=== PATIENT | male | born 2000 | race Hispanic/Latino ===

== ENCOUNTER 2023-11-18 18:34 | Emergency (ER) | payer BC ==
[~2023-11-18] VITALS: Ht 170.2 cm; Wt 59.9 kg
[2023-11-18 19:29] LABS: BASOPHILS # (AUTO) 0.02 K/uL (0.00-0.20); BASOPHILS % (AUTO) 0.2 % (0.0-5.0); EOSINOPHILS # (AUTO) 0.02 K/uL (0.00-0.70); EOSINOPHILS % (AUTO) 0.2 % (0.0-8.0); IMMATURE GRANULOCYTE ABSOLUTE 0.02 K/uL (0-1); LYMPHOCYTES # (AUTO) 2.8 K/uL (1.0-4.8); LYMPHOCYTES % (AUTO) 25.9 % (21.0-51.0); MEAN CORPUSCULAR HEMOGLOBIN 29.7 pg (27.0-33.0); MEAN CORPUSCULAR HGB CONC 35.3 g/dL (32.0-36.0); MEAN CORPUSCULAR VOLUME 84.1 fL (79-99); MONOCYTES # (AUTO) 0.6 K/uL (0.1-1.0); MONOCYTES % (AUTO) 5.5 % (3.0-13.0); NEUTROPHILS # (AUTO) 7.2 K/uL (1.8-7.7); PLATELET COUNT (AUTO) 210 K/uL (130-400); RED BLOOD CELL COUNT(AUTO) 5.35 MIL/uL (4.50-6.20); WHITE BLOOD COUNT (AUTO) 10.7 K/uL (4.8-10.8)
[2023-11-18 19:36] LABS: APPEARANCE,URINE CLEAR (CLEAR); BILIRUBIN,URINE NEGATIVE (NEGATIVE); COLOR,URINE YELLOW (YELLOW); GLUCOSE, URINE (UA) NEGATIVE (NEGATIVE); KETONES,URINE 40 mg/dL (NEGATIVE); LEUKOCYTE ESTERASE ,URINE NEGATIVE Leu/uL (NEGATIVE); NITRATE,URINE NEGATIVE (NEGATIVE); OCCULT BLOOD,URINE NEGATIVE (NEGATIVE); PROTEIN,URINE 20 mg/dL (NEGATIVE); UROBILINOGEN,URINE 0.2 mg/dL (0.2-1.0)
[2023-11-18 19:39] LABS: POTASSIUM 3.3 mmol/L (3.5-5.1)
[2023-11-18 19:40] LABS: ADD UA MICROSCOPIC YES
[2023-11-18 19:41] LABS: MUCUS,URINE MANY LPF (None Seen); SQUAMOUS EPITHELIAL CELL,UR RARE /HPF (0-2)
[2023-11-18] MEDS: MAG/ALUM/SIMETH 30 ML UDCUP PO ONE (19:43)
[2023-11-18] MEDS: LIDOCAINE HCL 2% VISCOUS 15 ML UDCUP PO ONE (19:43)
[2023-11-18] MEDS: 0.9%NACL 1000ML 1,000 ML IV ONE (19:43)
[2023-11-18] MEDS: FAMOTIDINE 20MG VIAL IV ONE (19:44)
[2023-11-18] MEDS: ONDANSETRON 4MG INJ IVP ONE (19:44)
[2023-11-18] MEDS: DICYCLOMINE HCL 10 MG/5 ML ML PO ONE (19:44)
[2023-11-18 19:46] LABS: ALBUMIN 4.8 g/dL (3.5-5.0); BILIRUBIN,TOTAL 1.2 mg/dL (0.2-1.0); TOTAL PROTEIN, SERUM 7.8 g/dL (6.0-8.3)
[2023-11-18] MEDS: KCL 20 MEQ ERTAB PO SCH (19:47)
[2023-11-18] MEDS ORDERED: OMEP40CA21 PO (20:18)
[2023-11-18] MEDS ORDERED: SUCR1TAB28 PO (20:18)
[2023-11-18 21:06] VITALS: BP 129/89; PULSE 83; RESP 17; O2SAT 98
== END 2023-11-18 21:48 | disposition home or self-care (01) ==
LOC: EDH 18:34
DX: K29.00 Acute gastritis without bleeding (principal); E80.7 Disorder of bilirubin metabolism, unspecified; Z98.890 Other specified postprocedural states; Z88.0 Allergy status to penicillin
CPT/HCPCS: 99284; 96374; 96361; 96375; 80053; 83690; 85025; 81001; 36415; 93005; J3490; J7030; J2405

== ENCOUNTER 2023-11-20 05:26 | Emergency (ER) | payer BC, OTHER ==
[~2023-11-20] VITALS: Ht 162.6 cm; Wt 60.8 kg
[~2023-11-20 05:26] MED LIST: OMEP40CA21 PO; SUCR1TAB28 PO
[2023-11-20] MEDS: LIDOCAINE HCL 2% VISCOUS 15 ML UDCUP PO ONE (05:37)
[2023-11-20] MEDS: MAG/ALUM/SIMETH 30 ML UDCUP PO ONE (05:37)
[2023-11-20] MEDS: PANTOPRAZOLE 40 MG/VIAL IVP ONE (05:37)
[2023-11-20 05:42] LABS: BASOPHILS # (AUTO) 0.03 K/uL (0.00-0.20); BASOPHILS % (AUTO) 0.3 % (0.0-5.0); EOSINOPHILS # (AUTO) 0.08 K/uL (0.00-0.70); EOSINOPHILS % (AUTO) 0.7 % (0.0-8.0); HEMATOCRIT 44.9 % (42-54); IMMATURE GRANULOCYTE ABSOLUTE 0.03 K/uL (0-1); LYMPHOCYTES # (AUTO) 4.6 K/uL (1.0-4.8); MEAN CORPUSCULAR HEMOGLOBIN 29.9 pg (27.0-33.0); MEAN CORPUSCULAR HGB CONC 35.4 g/dL (32.0-36.0); MEAN CORPUSCULAR VOLUME 84.4 fL (79-99); MONOCYTES # (AUTO) 0.8 K/uL (0.1-1.0); MONOCYTES % (AUTO) 6.9 % (3.0-13.0); NEUTROPHILS # (AUTO) 5.7 K/uL (1.8-7.7); NEUTROPHILS % (AUTO) 50.8 % (40.0-77.0); PLATELET COUNT (AUTO) 222 K/uL (130-400); RED BLOOD CELL COUNT(AUTO) 5.32 MIL/uL (4.50-6.20); RED CELL DISTRIBUTION WIDTH 11.9 % (11.0-15.5); WHITE BLOOD COUNT (AUTO) 11.1 K/uL (4.8-10.8)
[2023-11-20 06:01] LABS: BILIRUBIN,TOTAL 0.8 mg/dL (0.2-1.0); TOTAL PROTEIN, SERUM 7.9 g/dL (6.0-8.3)
[2023-11-20] MEDS: POTASSIUM BICARB/CIT AC 25 MEQ TABLET.EFF PO ONE (06:13)
[2023-11-20 08:32] LABS: AMPHET/METH SCREEN,URINE NEGATIVE (NEGATIVE); BARBITURATE SCREEN, URINE NEGATIVE (NEGATIVE); BENZODIAZEPINES SCREEN,URINE NEGATIVE (NEGATIVE); CANNABINOID SCREEN,URINE POSITIVE (NEGATIVE); COCAINE SCREEN,URINE NEGATIVE (NEGATIVE); OPIATE SCREEN,URINE NEGATIVE (NEGATIVE); PHENCYCLIDINE SCREEN,URINE NEGATIVE (NEGATIVE)
[2023-11-20 08:53] LABS: APPEARANCE,URINE CLEAR (CLEAR); BILIRUBIN,URINE NEGATIVE (NEGATIVE); COLOR,URINE YELLOW (YELLOW); GLUCOSE, URINE (UA) NEGATIVE (NEGATIVE); KETONES,URINE 40 mg/dL (NEGATIVE); LEUKOCYTE ESTERASE ,URINE NEGATIVE Leu/uL (NEGATIVE); NITRATE,URINE NEGATIVE (NEGATIVE); OCCULT BLOOD,URINE NEGATIVE (NEGATIVE); PH,URINE 6.5 (5.0-8.0); PROTEIN,URINE NEGATIVE (NEGATIVE)
[2023-11-20] MEDS: ONDANSETRON 4MG INJ IVP ONE (08:56)
[2023-11-20] MEDS: MORPHINE 2 MG SYG IVP ONE (08:57)
[2023-11-20] MEDS: HYOSCYAMINE SULFATE 0.125 MG TAB.SUBL SL ONE (08:57)
[2023-11-20 09:05] LABS: ADD UA MICROSCOPIC YES
[2023-11-20 09:14] LABS: BACTERIA,URINE Rare /HPF (None Seen); RBC,URINE 0-1 /HPF (0-1); SQUAMOUS EPITHELIAL CELL,UR Rare /HPF (0-2); WBC,URINE 0-1 /HPF (0-1)
[2023-11-20 10:17] VITALS: BP 126/72; PULSE 75; RESP 16; O2SAT 97
[2023-11-20] MEDS ORDERED: ONDA4TAB10 SL (10:41)
[2023-11-20] MEDS ORDERED: PANT40GR PO (10:41)
== END 2023-11-20 10:56 | disposition home or self-care (01) ==
LOC: EDH 05:26
DX: K29.00 Acute gastritis without bleeding (principal); E87.6 Hypokalemia; Z79.899 Other long term (current) drug therapy; Z98.890 Other specified postprocedural states; Z88.0 Allergy status to penicillin
CPT/HCPCS: 99284; 96374; 76705; 96375; 71045; 82550; 84484; 80053; 80305; 83690; 85025; 36415; 93005; 81001; J2270; J2405; C9113